=== PATIENT | male | born 1940 | race Caucasian/White ===

== ENCOUNTER 2017-05-03 16:33 | Inpatient (IN) | payer OTHER ==
--- NOTE | 2017-05-03 16:45 | CPEKG ---
Heart Rate: 112 RR Interval: 536 QRSD Interval: 96 QT Interval: 320 QTC Interval: 437 QRS [place]: 89 T Wave [place]: -21 EKG Severity - ABNORMAL ECG - EKG Impression: ATRIAL FIBRILLATION, V-RATE 94-144 EKG Impression: BORDERLINE RIGHT AXIS DEVIATION EKG Impression: ?atrial flutter/ fib Electronically Signed By: Wanda Fajardo 03-May-2017 21:32:58
[2017-05-03] MEDS ORDERED: ASPIRIN 81 MG CHEWABLE TAB PO ONE (17:02)
[2017-05-03] MEDS ORDERED: NS 500 ML IV ONE (17:02)
[2017-05-03] MEDS ORDERED: LIDOCAINE 2% VISCOUS 15 ML UDCUP PO ONE (17:02)
[2017-05-03] MEDS ORDERED: HYOSCYAMINE SULFATE 0.125 MG TAB PO ONE (17:02)
[2017-05-03] MEDS ORDERED: MAG HYDROX/AL HYDROX/SIMETH 30 ML UDCUP PO ONE (17:02)
[2017-05-03] MEDS ORDERED: DILTIAZEM 25 MG/5 ML VIAL IVP ONE ×2 (17:02→18:39)
[2017-05-03 17:08] LABS: % IMMATURE GRANULYOCYTES 0.4 % (0.0-1.1); ABSOLUTE IMMATURE GRANULOCYTES 0.07 10^3/uL (0.00-0.10); ADD DIFF? NO; ADD MORPH? NO; ADD SCAN? NO; ATYPICAL LYMPHOCYTE FLAG 0 (0-99); FRAGMENT RBC FLAG 0 (0-99); HEMATOCRIT 43.4 % (40.0-51.0); HEMOGLOBIN 14.9 g/dL (13.7-17.5); LEFT SHIFT FLG 10 (0-99); LIPEMIA HEMOLYSIS FLAG 90 (0-99); MEAN CELL HEMOGLOBIN 31.1 pg (27.9-34.1); MEAN CELL HEMOGLOBIN CONCENTR. 34.3 g/dL (32.4-36.7); MEAN CELL VOLUME 90.6 fL (81.5-99.8); MEAN PLATELET VOLUME 10.4 fL (8.7-11.7); PLATELET CLUMPS FLAG 10 (0-99); PLATELET COUNT 199 10^3/uL (150-400); RED BLOOD CELL COUNT 4.79 10^6/uL (4.40-6.38); RED CELL DISTRIBUTION WIDTH 13.6 % (11.5-15.2)
[2017-05-03 17:20] LABS: ALANINE AMINOTRANSFERASE 34 IU/L (21-72); ALBUMIN 4.1 g/dL (3.5-5.0); ALKALINE PHOSPHATASE 101 IU/L (38-126); ANION GAP 13 mEq/L (8-16); ASPARTATE AMINOTRANSFERASE 29 IU/L (17-59); BILIRUBIN,TOTAL 1.3 mg/dL (0.1-1.4); BILIRUBIN-CONJUGATED 0.3 mg/dL (0.0-0.5); CALCIUM 9.4 mg/dL (8.5-10.4); CARBON DIOXIDE 21 mEq/l (22-31); CHLORIDE 97 mEq/L (97-110); CREATININE 0.8 mg/dL (0.7-1.3); GLOMERULAR FILTRATION RATE > 60; GLUCOSE 111 mg/dL (70-100); POTASSIUM 4.1 mEq/L (3.5-5.2); SODIUM 131 mEq/L (134-144)
[2017-05-03 17:31] LABS: TROPONIN I < 0.012 ng/mL (0.000-0.034)
[2017-05-03] MEDS ORDERED: ASPIRIN 81 MG CHEWABLE TAB ONE (17:48)
[2017-05-03 18:14] LABS: COLOR YELLOW; LEUKOCYTE ESTERASE,URINE NEGATIVE (NEGATIVE); NITRITE,URINE NEGATIVE (NEGATIVE)
[2017-05-03 18:18] LABS: MUCUS TRACE /lpf (NONE-1+)
[2017-05-03] MEDS ORDERED: IOPAMIDOL (ISOVUE-300) 100 ML BTL ONE (18:29)
--- NOTE | 2017-05-03 18:37 | EDPHY ---
H & P Stated Complaint: hx afib/chest pain x 3 days Time Seen by Provider: 05/03/17 16:45 HPI/ROS: CHIEF COMPLAINT: Epigastric pain, nausea HISTORY OF PRESENT ILLNESS: 76-year-old gentleman with history of atrial fibrillation presents reporting epigastric, right and left upper quadrant discomfort as well as nausea which has been present for the last 3 days. Patient describes the discomfort as a dull pain. Better when he lays flat and worse when he walks. Does have a history of having gallstones and states that she thought it might be a gallbladder attack but it has been lasting to long. Patient reports the discomfort feels like it is up underneath his sternum. Patient denies any radiation of the pain. No diaphoresis, shortness of breath, pleuritic component. No vomiting. No palpitations. No lightheadedness. No history of coronary artery disease. No history of GERD, indigestion, reflux. He does report diminished appetite. No dysuria. REVIEW OF SYSTEMS: Aside from elements discussed in the HPI, a comprehensive 10-point review of systems was reviewed and is negative. PAST MEDICAL HISTORY: Atrial fibrillation. Hard of hearing. SOCIAL HISTORY: Here with his . Nonsmoker. VITAL SIGNS Reviewed by me. GENERAL: Well-developed, well-nourished, resting comfortably in no respiratory distress. HEENT: Atraumatic. Eyes: No icterus, no injection. Mouth: moist mucous membranes. No erythema or lesions. Neck: supple with no adenopathy. LUNGS: Clear to auscultation bilaterally, no wheezes, rhonchi or rales. CARDIAC: Regular rate and rhythm, no rubs, murmurs or gallops. ABDOMEN: Soft, mild epigastric tenderness to palpation. Mild right and left upper quadrant tenderness. No guarding or rebound. BACK: No CVA tenderness. EXTREMITIES: No trauma. No edema. Range of motion is normal throughout. NEURO: Alert and oriented, grossly nonfocal. SKIN: Warm and dry, no rash. PSYCHIATRIC: Normal mentation, no agitation. - Personal History Current Tetanus/Diphtheria Vaccine: Yes Tetanus Vaccine Date: 2008 - Medical/Surgical History Hx Asthma: No Hx Chronic Respiratory Disease: No Hx Diabetes: No Hx Cardiac Disease: Yes Hx Renal Disease: No Hx Cirrhosis: No Hx Alcoholism: No Hx HIV/AIDS: No Hx Splenectomy or Spleen Trauma: No Other PMH: afib/hearing loss/l knee replacement - Social History Smoking Status: Never smoked Constitutional: Initial Vital Signs Temperature (C) 37 C 05/03/17 16:36 Heart Rate 128 H 05/03/17 16:36 Respiratory Rate 20 05/03/17 16:36 Blood Pressure 159/100 H 05/03/17 16:36 O2 Sat (%) 97 05/03/17 16:36 O2 Delivery Mode Room Air Allergies/Adverse Reactions: No Allergies [NKDA] Allergy (Verified 05/03/17 16:35) Home Medications: Medication Instructions Recorded Aspirin [Aspirin 81mg (*)] 81 mg PO DAILY 05/19/12 Medical Decision Making - Diagnostics EKG Interpretation: 12-LEAD EKG: Please see the full report in [facility]. My interpretation: Rate of 112. Appears to be atrial flutter versus AFib. Imaging Results: Imaging Impressions Abdomen Ultrasound 05/03/17 17:03 Impression: 1. Echogenic lesions probably representing hemangiomas with stable lesion in the right lobe liver posterior segment above Morison's pouch. The second lesion was not documented previously. However, there is shadowing associated with the second lesion which is unusual for hemangioma. This could actually represent decompressed duodenum. Consider continued follow-up to confirm stability in 6- 12 months. 2. Elongated mildly enlarged gallbladder with gallstones once again identified although now impacted in the region of the gallbladder neck. The patient was nontender over the gallbladder. There is borderline gallbladder wall thickening. Consider chronic cholecystitis. 3. The pancreas is obscured by overlying bowel gas. Findings discussed with Wanda Fajardo MD at 17:55 hour, 05/03/2017. ED Course/Re-evaluation: 76-year-old with a history of atrial fibrillation - Data Points Laboratory Results: Laboratory Results 05/03/17 16:50 05/03/17 16:50 05/03/17 05/03/17 05/03/17 18:00 16:50 16:50 WBC 18.37 10^3/uL H 10^3/uL (3.80-9.50) RBC 4.79 10^6/uL 10^6/uL (4.40-6.38) Hgb 14.9 g/dL g/dL (13.7-17.5) Hct 43.4 % % (40.0-51.0) MCV 90.6 fL fL (81.5-99.8) MCH 31.1 pg pg (27.9-34.1) MCHC 34.3 g/dL g/dL (32.4-36.7) RDW 13.6 % % (11.5-15.2) Plt Count 199 10^3/uL 10^3/uL (150-400) MPV 10.4 fL fL (8.7-11.7) Neut % (Auto) 86.5 % H % (39.3-74.2) Lymph % (Auto) 5.8 % L % (15.0-45.0) [place] % (Auto) 6.9 % % (4.5-13.0) Eos % (Auto) 0.2 % L % (0.6-7.6) Baso % (Auto) 0.2 % L % (0.3-1.7) Nucleat RBC Rel Count 0.0 % % (0.0-0.2) Absolute Neuts (auto) 15.90 10^3/uL H 10^3/uL (1.70-6.50) Absolute Lymphs (auto) 1.06 10^3/uL 10^3/uL (1.00-3.00) Absolute Monos (auto) 1.27 10^3/uL H 10^3/uL (0.30-0.80) Absolute Eos (auto) 0.03 10^3/uL 10^3/uL (0.03-0.40) Absolute Basos (auto) 0.04 10^3/uL 10^3/uL (0.02-0.10) Absolute Nucleated RBC 0.00 10^3/uL 10^3/uL (0-0.01) Immature Gran % 0.4 % % (0.0-1.1) Immature Gran # 0.07 10^3/uL 10^3/uL (0.00-0.10) Sodium 131 mEq/L L mEq/L (134-144) Potassium 4.1 mEq/L mEq/L (3.5-5.2) Chloride 97 mEq/L mEq/L (97-110) Carbon Dioxide 21 mEq/l L mEq/l (22-31) Anion Gap 13 mEq/L mEq/L (8-16) BUN 10 mg/dL mg/dL (7-23) Creatinine 0.8 mg/dL mg/dL (0.7-1.3) Estimated GFR > 60 Glucose 111 mg/dL H mg/dL (70-100) Calcium 9.4 mg/dL mg/dL (8.5-10.4) Total Bilirubin 1.3 mg/dL mg/dL (0.1-1.4) Conjugated Bilirubin 0.3 mg/dL mg/dL (0.0-0.5) Unconjugated Bilirubin 1.0 mg/dL mg/dL (0.0-1.1) AST 29 IU/L IU/L (17-59) ALT 34 IU/L IU/L (21-72) Alkaline Phosphatase 101 IU/L IU/L (38-126) Troponin I < 0.012 ng/mL ng/mL (0.000-0.034) Total Protein 8.0 g/dL g/dL (6.3-8.2) Albumin 4.1 g/dL g/dL (3.5-5.0) Lipase 335 IU/L H IU/L (23-300) Urine Color YELLOW Urine Appearance CLEAR Urine pH 6.0 (5.0-7.5) Ur Specific [place] 1.023 (1.002-1.030) Urine Protein NEGATIVE (NEGATIVE) Urine Ketones 1+ H (NEGATIVE) Urine Blood 2+ H (NEGATIVE) Urine Nitrate NEGATIVE (NEGATIVE) Urine Bilirubin NEGATIVE (NEGATIVE) Urine Urobilinogen NEGATIVE EU EU (0.2-1.0) Ur Leukocyte Esterase NEGATIVE (NEGATIVE) Urine RBC 10-15 /hpf H /hpf (0-3) Urine WBC 1-3 /hpf /hpf (0-3) Ur Epithelial Cells NONE SEEN /lpf /lpf (NONE-1+) Hyaline Casts 5-15 /lpf /lpf (0-1) Urine Mucus TRACE /lpf /lpf (NONE-1+) Urine Glucose NEGATIVE (NEGATIVE) Medications Given: Discontinued Medications Al Hydroxide/Mg Hydroxide (Maalox Susp) 30 ml PO ONCE ONE Stop: 05/03/17 17:03 Last Admin: 05/03/17 17:15 Dose: 30 ml Aspirin (Aspirin) 324 mg PO EDNOW ONE Stop: 05/03/17 17:03 Last Admin: 05/03/17 17:15 Dose: 324 mg Diltiazem HCl (Cardizem 25 Mg/5 Ml Vial) 10 mg IVP EDNOW ONE Stop: 05/03/17 17:03 Last Admin: 05/03/17 17:15 Dose: 10 mg Hyoscyamine Sulfate (Levsin, Hyomax-Sl) 0.25 mg PO ONCE ONE Stop: 05/03/17 17:03 Last Admin: 05/03/17 17:15 Dose: 0.25 mg Sodium Chloride (Ns) 500 mls @ 0 mls/hr IV EDNOW ONE; Wide Open PRN Reason: Protocol Stop: 05/03/17 17:03 Last Admin: 05/03/17 17:14 Dose: 500 mls Lidocaine (Lidocaine 2% Viscous) 15 ml PO ONCE ONE Stop: 05/03/17 17:03 Last Admin: 05/03/17 17:16 Dose: 15 ml Departure - Departure Referrals: VU ABRAMS [Primary Care Provider] - As per Instructions
[2017-05-03] MEDS ORDERED: PROMETHAZINE HCL 25 MG TAB PO PRN (18:41)
[2017-05-03] MEDS ORDERED: ONDANSETRON DISINTEGRATING 4 MG TAB PO PRN (18:41)
[2017-05-03] MEDS ORDERED: ONDANSETRON 4 MG/2 ML VIAL IVP PRN (18:41)
[2017-05-03] MEDS ORDERED: PROMETHAZINE HCL 25 MG/ML INJ IVP PRN (18:41)
[2017-05-03] MEDS ORDERED: HYDROmorphONE/DILAUDID 2 MG TAB PO PRN (18:41)
[2017-05-03] MEDS ORDERED: HYDROmorphONE/DILAUDID 1 MG/ML INJ ONE (19:19)
[2017-05-03] MEDS ORDERED: METOPROLOL TARTRATE 25 MG TAB PO ONE ×3 (19:20→20:15)
[2017-05-03] MEDS: HYDROmorphONE/DILAUDID 1 MG/ML INJ IVP PRN ×2 (19:21→23:47)
--- NOTE | 2017-05-03 19:31 | PDGENHP ---
History and Physical - Chief Complaint Acute abdominal pain - History of Present Illness Primary care provider: Dr. Lopez Primary director corporate: Dr. Jimbo Shni HPI: 76-year-old male presenting with acute abdominal pain located in the bilateral upper quadrants with associated nausea, onset of symptoms 3 days ago and duration persistent thereafter. Patient reports that the pain is exacerbated by standing upright and ambulating, alleviated by lying supine. Reports that pain medications received in the emergency department also seemed to alleviate the pain. Characterizes as doll, specifically located below the sternum, without any radiation. Prior to onset of symptoms patient had otherwise been feeling well, had not recently engage in any vigorous physical activity. His oral intake of foods has been reduced, secondary to poor appetite , has only been drinking water. He also reports that over the past year, his energy level has been on a slow decline, without any abrupt changes. He was initiated on levothyroxine several months ago, but ran out of his prescription approximately 10 days ago. He also reports that from an atrial fibrillation standpoint, he is asymptomatic, and he has been permanent atrial fibrillation for the past 2 years. During his most recent office visit with Dr. Shin, in October 2016, his heart rate was in the low 80s, and he was not initiated on any rate-controlling agents. He has occasionally experienced chest pain during the past 4 months, but he has not noticed any temporal association with activity. History Information - Allergies/Home Medication List Allergies/Adverse Reactions: No Allergies [NKDA] Allergy (Verified 05/03/17 16:35) Home Medications: Aspirin [Aspirin 81mg (*)] 81 mg PO DAILY 05/19/12 [Last Taken 06/02/12] I have personally reviewed and updated: family history, medical history, social history, surgical history - Past Medical History atrial fibrillation (Permanent, on aspirin for CVA prevention, status post attempted DC cardioversion back in September of 2014, only lasted for several days) , hyperlipidemia Additional medical history: Obstructive sleep apnea not on CPAP. Moderate mitral regurgitation. Osteoarthritis in the hip and the knees. Gout. Hearing loss. Gallbladder stones - Surgical History Additional surgical history: Left knee surgery - Family History Additional family history: Brother with cardiac stents at age 55 - Social History Smoking Status: Never smoked Alcohol Use: Occasionally (No more than 1 drink per night) Drug Use: None Additional social history: Not particularly physically active, has not recently noted any chest pain or reduction in physical activity secondary to exercise Review of Systems Review of Systems: ROS: 10pt was reviewed & negative except for what was stated in HPI & below Gastrointestinal: Reports: abdominal pain, nausea Physical Exam Physical Exam: Temp Pulse Resp BP Pulse Ox 37 C 129 H 18 153/84 H 94 05/03/17 16:36 05/03/17 19:23 05/03/17 19:23 05/03/17 19:23 05/03/17 19:23 Constitutional: no apparent distress, uncomfortable, No not in pain (2/10 pain) , No chronically ill appearing Eyes: PERRL, anicteric sclera, EOMI Ears, Nose, Mouth, Throat: moist mucous membranes, hearing normal, ears appear normal, no oral mucosal ulcers Cardiovascular: no murmur, rub, or gallop, irregularly irregular, tachycardia, No edema Lab Data & Imaging Review 05/03/17 16:50 05/03/17 16:50 WBC 18.37 10^3/uL (3.80-9.50) H 05/03/17 16:50 RBC 4.79 10^6/uL (4.40-6.38) 05/03/17 16:50 Hgb 14.9 g/dL (13.7-17.5) 05/03/17 16:50 Hct 43.4 % (40.0-51.0) 05/03/17 16:50 MCV 90.6 fL (81.5-99.8) 05/03/17 16:50 MCH 31.1 pg (27.9-34.1) 05/03/17 16:50 MCHC 34.3 g/dL (32.4-36.7) 05/03/17 16:50 RDW 13.6 % (11.5-15.2) 05/03/17 16:50 Plt Count 199 10^3/uL (150-400) 05/03/17 16:50 MPV 10.4 fL (8.7-11.7) 05/03/17 16:50 Neut % (Auto) 86.5 % (39.3-74.2) H 05/03/17 16:50 Lymph % (Auto) 5.8 % (15.0-45.0) L 05/03/17 16:50 [place] % (Auto) 6.9 % (4.5-13.0) 05/03/17 16:50 Eos % (Auto) 0.2 % (0.6-7.6) L 05/03/17 16:50 Baso % (Auto) 0.2 % (0.3-1.7) L 05/03/17 16:50 Nucleat RBC Rel Count 0.0 % (0.0-0.2) 05/03/17 16:50 Absolute Neuts (auto) 15.90 10^3/uL (1.70-6.50) H 05/03/17 16:50 Absolute Lymphs (auto) 1.06 10^3/uL (1.00-3.00) 05/03/17 16:50 Absolute Monos (auto) 1.27 10^3/uL (0.30-0.80) H 05/03/17 16:50 Absolute Eos (auto) 0.03 10^3/uL (0.03-0.40) 05/03/17 16:50 Absolute Basos (auto) 0.04 10^3/uL (0.02-0.10) 05/03/17 16:50 Absolute Nucleated RBC 0.00 10^3/uL (0-0.01) 05/03/17 16:50 Immature Gran % 0.4 % (0.0-1.1) 05/03/17 16:50 Immature Gran # 0.07 10^3/uL (0.00-0.10) 05/03/17 16:50 Sodium 131 mEq/L (134-144) L 05/03/17 16:50 Potassium 4.1 mEq/L (3.5-5.2) 05/03/17 16:50 Chloride 97 mEq/L (97-110) 05/03/17 16:50 Carbon Dioxide 21 mEq/l (22-31) L 05/03/17 16:50 Anion Gap 13 mEq/L (8-16) 05/03/17 16:50 BUN 10 mg/dL (7-23) 05/03/17 16:50 Creatinine 0.8 mg/dL (0.7-1.3) 05/03/17 16:50 Estimated GFR > 60 05/03/17 16:50 Glucose 111 mg/dL (70-100) H 05/03/17 16:50 Calcium 9.4 mg/dL (8.5-10.4) 05/03/17 16:50 Total Bilirubin 1.3 mg/dL (0.1-1.4) 05/03/17 16:50 Conjugated Bilirubin 0.3 mg/dL (0.0-0.5) 05/03/17 16:50 Unconjugated Bilirubin 1.0 mg/dL (0.0-1.1) 05/03/17 16:50 AST 29 IU/L (17-59) 05/03/17 16:50 ALT 34 IU/L (21-72) 05/03/17 16:50 Alkaline Phosphatase 101 IU/L (38-126) 05/03/17 16:50 Troponin I < 0.012 ng/mL (0.000-0.034) 05/03/17 16:50 Total Protein 8.0 g/dL (6.3-8.2) 05/03/17 16:50 Albumin 4.1 g/dL (3.5-5.0) 05/03/17 16:50 Lipase 335 IU/L (23-300) H 05/03/17 16:50 Urine Color YELLOW 05/03/17 18:00 Urine Appearance CLEAR 05/03/17 18:00 Urine pH 6.0 (5.0-7.5) 05/03/17 18:00 Ur Specific [place] 1.023 (1.002-1.030) 05/03/17 18:00 Urine Protein NEGATIVE (NEGATIVE) 05/03/17 18:00 Urine Ketones 1+ (NEGATIVE) H 05/03/17 18:00 Urine Blood 2+ (NEGATIVE) H 05/03/17 18:00 Urine Nitrate NEGATIVE (NEGATIVE) 05/03/17 18:00 Urine Bilirubin NEGATIVE (NEGATIVE) 05/03/17 18:00 Urine Urobilinogen NEGATIVE EU (0.2-1.0) 05/03/17 18:00 Ur Leukocyte Esterase NEGATIVE (NEGATIVE) 05/03/17 18:00 Urine RBC 10-15 /hpf (0-3) H 05/03/17 18:00 Urine WBC 1-3 /hpf (0-3) 05/03/17 18:00 Ur Epithelial Cells NONE SEEN /lpf (NONE-1+) 05/03/17 18:00 Hyaline Casts 5-15 /lpf (0-1) 05/03/17 18:00 Urine Mucus TRACE /lpf (NONE-1+) 05/03/17 18:00 Urine Glucose NEGATIVE (NEGATIVE) 05/03/17 18:00 Visualized and Interpreted Chest x-ray results: Yes Chest X-Ray results: no infiltrate Visualized and Interpreted EKG results: Yes EKG Interpretation: Positive for: other (Atrial flutter) Assessment & Plan Assessment: 76-year-old male presents with acute abdominal pain and result in atrial flutter in the setting of permanent atrial fibrillation Plan: 1. Abdominal pain. Acute, new problem this provider, further workup indicated. Possible etiologies include cholecystitis, pancreatitis, colitis, nephrolithiasis, referred pain from angina. I suspect the most likely cause is gastrointestinal in origin, given his reproducible symptoms on physical exam, stomach bubble on chest x-ray, biliary stones impacted at the neck of the gallbladder on ultrasound -discussed with Dr. Wanda Fajardo, we both agree that intra-abdominal source is the most likely with an elevated white blood cell count, placing him at risk for overt infection, get CT of the abdomen with IV contrast -if CT does not demonstrate overt cholecystitis and does not reveal another source of his discomfort, will get HIDA scan in a.m. -he does have some microscopic hematuria on urinalysis, and if the above CT scan is unremarkable, will get ultrasounds of bilateral kidneys and ureters -treat supportively with IV and oral Dilaudid, antiemetics, bowel rest with clear liquids 2. Atrial flutter. Acute, rapid ventricular response, in the setting of permanent atrial fibrillation which is normally rate controlled. Most likely provoked in the setting of above, that being said his progressive reduction in exercise tolerance as well as intermittent chest pains do raise the concern for obstructive coronary disease -get echocardiogram -order outside records including echocardiogram from early in [address] Shin's office -get TSH level given recent discontinuation of Synthroid -monitor on telemetry -initiate rate-controlling medication with metoprolol 25 mg now, 12.5 mg twice daily thereafter -will continue aspirin 81 mg for CVA prevention, per review of outside records including 10/09/[address] Jimbo Shin, reporting patient has a low chads Vasc score of 1, recommending aspirin for CVA prevention outside of the situation of cardioversion Diet. Clear liquid, NPO after midnight in case further studies required Prophylaxis. High risk patient, SCDs, hold pharm given possibility of biliary surgery Code. Do not resuscitate per patient, his Amara is his MPOA Disposition. Anticipated discharge uncertain this time, anticipated length stay is greater than 48 hours for reasonable medical necessity including acute abdominal pain most likely secondary to a surgical biliary source which requires further workup, intensive pain management, complicated by high risk comorbid acute atrial flutter requiring further workup as well.
[2017-05-03] MEDS ORDERED: METOPROLOL TARTRATE 25 MG TAB ONE (19:41)
[2017-05-03] MEDS ORDERED: METOPROLOL TARTRATE 25 MG TAB PO SCH (21:00)
[2017-05-03] MEDS ORDERED: NS 1,000 ML IV SCH (21:30)
[2017-05-04 05:50] LABS: % IMMATURE GRANULYOCYTES 0.6 % (0.0-1.1); ABSOLUTE IMMATURE GRANULOCYTES 0.09 10^3/uL (0.00-0.10); ADD DIFF? NO; ADD MORPH? NO; ADD SCAN? NO; ATYPICAL LYMPHOCYTE FLAG 0 (0-99); FRAGMENT RBC FLAG 0 (0-99); HEMATOCRIT 40.4 % (40.0-51.0); HEMOGLOBIN 13.7 g/dL (13.7-17.5); LEFT SHIFT FLG 0 (0-99); LIPEMIA HEMOLYSIS FLAG 90 (0-99); MEAN CELL HEMOGLOBIN CONCENTR. 33.9 g/dL (32.4-36.7); MEAN CELL VOLUME 91.4 fL (81.5-99.8); MEAN PLATELET VOLUME 10.5 fL (8.7-11.7); PLATELET CLUMPS FLAG 0 (0-99); PLATELET COUNT 187 10^3/uL (150-400); RED BLOOD CELL COUNT 4.42 10^6/uL (4.40-6.38); RED CELL DISTRIBUTION WIDTH 13.8 % (11.5-15.2)
[2017-05-04 05:58] LABS: ALANINE AMINOTRANSFERASE 35 IU/L (21-72); ALBUMIN 3.2 g/dL (3.5-5.0); ALKALINE PHOSPHATASE 96 IU/L (38-126); ANION GAP 8 mEq/L (8-16); ASPARTATE AMINOTRANSFERASE 27 IU/L (17-59); BILIRUBIN,TOTAL 1.3 mg/dL (0.1-1.4); CALCIUM 8.6 mg/dL (8.5-10.4); CARBON DIOXIDE 20 mEq/l (22-31); CHLORIDE 99 mEq/L (97-110); CREATININE 0.8 mg/dL (0.7-1.3); GLOMERULAR FILTRATION RATE > 60; GLUCOSE 103 mg/dL (70-100); POTASSIUM 4.6 mEq/L (3.5-5.2); SODIUM 127 mEq/L (134-144); TOTAL PROTEIN 6.2 g/dL (6.3-8.2)
[2017-05-04 06:06] LABS: TROPONIN I < 0.012 ng/mL (0.000-0.034)
[2017-05-04] MEDS: METOPROLOL TARTRATE 25 MG TAB PO SCH ×2 (08:09→20:28)
[2017-05-04] MEDS: ACETAMINOPHEN 325 MG TAB PO PRN ×2 (09:04→20:28)
--- NOTE | 2017-05-04 10:11 | PDMN ---
Medical Necessity Medical necessity: M05 abd pain undg: req pt to be NPO for extended period of time for further eval , monitoring and tx., , IV fluids, pain meds in pt with hx of a flutter in setting of permanent afib.
--- NOTE | 2017-05-04 10:25 | ECHO ---
[email or web address] [address] [address] Main: [phone] Fax: Transthoracic Echocardiogram Name: CONSTANTIN TRACY MR#: [id number] Study Date: 05/04/2017 Study Time: 08:04 AM Date of : 1940 Age: 76 year(s) Height: 180.3 cm (71 in.) Weight: 91.63 kg (202 lb.) BSA: 2.12 m2 Gender: Male Examination: Echo Indication: Eval wall motion/EF and MR Image Quality: Contrast: Requested by: Jimbo Stack BP: 121 mmHg/84 mmHg Heart Rate: Rhythm: Atrial fibrillation Indication: Eval wall motion/EF and MR Procedure Staff Research Chemical Engineer: Luba Valentine Physician: Naren Christopher Requesting Provider: Conclusions: Global hypercontractility of the left ventricle. Mildly dilated right ventricle. Moderate to severe mitral regurgitation. The RVSP is 45mmHG. Measurements: Chambers Valvular Assessment AV/MV Valvular Assessment TV/PV Normal Normal Normal Name Value Range Name Value Range Name Value Range Ao Nishi (MM): 3.8 cm (2.2 cm-3.7 AV meanP mmHg ( - ) TR Vmax: 3.06 mm/s ( - ) cm) LVOT Vmax: 0.73 m/s (0.7 m/s-1.1 TR PGmax: 37 mmHg ( - ) IVSd (2D): 0.8 cm (0.6 cm-1.1 m/s) syst. PAP: 42 mmHg ( - ) cm) GLORIA (VTI): 2.3 cm ( - ) LVDd (2D): 4.7 cm (4.2 cm-5.9 MV meanP mmHg ( - ) cm) MVA (Vmax): 3.0 m/s ( - ) LVDs (2D): 2.2 cm (2.1 cm-4 cm) LVPWd (2D): 1.0 cm (0.6 cm-1 cm) LVOTd 2.1 cm 2.1 cm mm LVEF (MOD4): 71 % (>=55 %) Continued Measurements: Chambers Valvular Assessment AV/MV Valvular Assessment TV/PV Name Value Name Value Name Value LADs: 4.5 cm MV Annulus: 3.0 cm CVP (est.): 5 mmHg LADs Lon.5 cm MV VTI: 15.20 cm LA Area: 27.1 cm2 MR Vena Contracta: 0.3 cm MR ERO: 0.1 cm2 Patient: CONSTANTIN TRACY Study Date: 05/04/2017 Page 1 of 2 08:04 AM MR PISA radius: 5 mm MR Reg. Volume: 14 ml MR Reg. Fraction: 13 % Findings: Left Ventricle: Normal size left ventricle. Global hypercontractility of the left ventricle. EF is 71 %. Right Ventricle: Mildly dilated right ventricle. Left Atrium: The left atrium is moderately dilated. Right Atrium: The right atrium is mildly dilated. Mitral Valve: Moderate to severe mitral regurgitation. There is mild calcification of the anterior mitral leaflet.. Aortic Valve: The aortic valve is tri-leaflet. There is mild thickening of the aortic cusps. Tricuspid Valve: The tricuspid valve appears normal. Mild tricuspid regurgitation is present. The RVSP is 45mmHG. Pulmonic Valve: The pulmonic valve is normal in appearance. Trivial pulmonic valve regurgitation. Pericardium: There is pericardial fat. (No Signature Object) Patient: CONSTANTIN TRACY Study Date: 05/04/2017 Page 2 of 2 08:04 AM [id number]
--- NOTE | 2017-05-04 13:13 | HOSPPROG ---
Hospitalist Progress Note Assessment/Plan: # gallstone pancreatitis - advance to clears - patient wants to discuss with Dr Jimenez (personal friend) regarding shari # MR - seems like it has progressed since october - cards consult prior to and procedure # atrial fibrillation, now RVR, has not been rapid in the past - cont metop for now (new med) - on asa for cva ppx # hemangioma - outpatient f/u Subjective: abd pain better Objective: Vital Signs Temp Pulse Resp BP Pulse Ox 36.9 C 96 13 123/74 H 90 L 05/04/17 12:20 05/04/17 12:20 05/04/17 12:20 05/04/17 12:20 05/04/17 12:20 Laboratory Results 05/04/17 05:10 05/04/17 05:10 05/03/17 05/04/17 05/05/17 05:59 05:59 05:59 Intake Total 400 Output Total 225 Balance 175 imaging reviewed chart reviewed discussed with Olimpia Mortensen - Physical Exam Constitutional: no apparent distress, appears nourished Cardiovascular: regular rate and rhythym, no murmur, rub, or gallop Respiratory: no respiratory distress, no rales or rhonchi, clear to auscultation Gastrointestinal: normoactive bowel sounds, soft, non-tender abdomen, no palpable masses ICD10 Worksheet Patient Problems: Problems Problem Status Onset Atrial fibrillation Acute - ICD10 Problem Qualifiers (1) Atrial fibrillation
--- NOTE | 2017-05-04 14:27 | ASMTCMCOM ---
CM Note CM Note Notes: 05/04/2017 Case Management Note: Reviewed chart, spoke w/RN. No Case Management d/c needs identified d/t pt marital status, activity levels prior to admission, and lack of PT or OT evals. Case Management d/c poc: Home Independent when medically stable. Case Management available if needs change. Date Signed: 05/04/2017 02:26 PM Electronically Signed By:Afia Miles RN
--- NOTE | 2017-05-04 18:10 | GCON ---
[f rep st] CONSULTATION GENERAL SURGERY CONSULTATION REASON FOR CONSULT: Gallstone pancreatitis. HISTORY OF PRESENT ILLNESS: The patient is a 76-year-old male, who was admitted to the hospital with dull constant nonradiating epigastric abdominal pain associated with nausea. He denies fevers or vo miting. He had a similar more mild episode about 10 years ago at which time, he says he had some gal lbladder thickening on an ultrasound but did not decide to have surgery. Since being in the hospital , he has had an ultrasound which showed a mildly enlarged gallbladder with stones possibly impacted i n the gallbladder neck. A CT scan showed signs of pancreatitis. MRI of the abdomen showed cholelith iasis with pancreatitis of the tail of the pancreas and no evidence of choledocholithiasis. He also may have a benign hemangioma in the liver. Of note, the patient has a cardiac history involving atrial fibrillation controlled on aspirin. EKG appeared to show atrial fibrillation without any sign of ischemia. Chest x-ray showed only some huong ings at the left lung base possibly from atelectasis. An echocardiogram showed an ejection fraction of 71%. Please see report for full details. At this time, his pain is thought to be secondary to his cholelithiasis and pancreatitis. His white blood cell count has gone from [id number]. He has relatively normal LFTs with a lipase mildly elevated at 335. He denies any problems with bowel habits or eating. PAST MEDICAL HISTORY: Includes atrial fibrillation on aspirin recalcitrant to cardioversion, obstruc tive sleep apnea not on CPAP, osteoarthritis, gout, hearing loss. PAST SURGICAL HISTORY: Includes total knee replacement. SOCIAL HISTORY: The patient rarely drinks and does not smoke. He is with his during my visit. REVIEW OF SYSTEMS: A 10-point review of systems performed and negative aside from that in the HPI. PHYSICAL EXAMINATION: VITAL SIGNS: Temperature 36.8, pulse oxygenation 92% on room air, respiratory rate 24, heart rate 97, blood pressure 130/81. GENERAL: Reveals a pleasant, well-developed, well-n ourished 76-year-old male, in no acute distress. HEENT: Normocephalic, atraumatic. Sclerae white. CHEST: Clear to auscultation bilaterally. CARDIAC: Irregular rhythm. ABDOMEN: Soft without guar ding, mild tenderness in the epigastrium. Slight rebound tenderness appearing in the epigastric kira on with palpation of the lower quadrants. EXTREMITIES: Warm and dry. IMPRESSION: This is a 76-year-old male with atrial fibrillation, who appears to have cholelithiasis and gallstone pancreatitis. PLAN: We recommend laparoscopic cholecystectomy. We will probably do a cholangiogram due to his mitchell creatitis, even though his MRI did not show any stones in the common duct. I think we could probably do this late tomorrow, as his lipase is not horribly elevated and he is quite comfortable at this ti me. I agree with staying with a clear liquid diet for now. I will make him n.p.o. after midnight, b ut possibly give him a clear liquid breakfast if we think his surgery will be late in the day. Risks and options were discussed including, but not limited to, bleeding, infection, injury to nerve, lanie ined stones, need for ERCP, open procedure, and other problems, and he requests to proceed. Dr. Ken casey will also be seeing the patient later on today. /[id number]/MODL
--- NOTE | 2017-05-04 18:24 | GCON ---
[f rep st] CONSULTATION CARDIOLOGY CONSULTATION DATE OF CONSULTATION: 05/04/2017 OTHER PHYSICIANS: Primary monomer recovery operator, Dr. Jimbo Shin. We were asked by Dr. Haresh Magana of [facility] to evaluate the patient for his preoperative risk. HISTORY OF PRESENT ILLNESS: The patient is a 76-year-old male, with known permanent atrial fibrillat ion, who is admitted for acute abdominal pain, starting 3 days prior to arrival. He notes it through out the epigastric region, with associated poor p.o. intake. It is relieved with lying down. He den ies any previous episodes prior to onset of these symptoms. Over the past year, he has been experiencing more fatigue. He denies that it is shortness of breath. He does feel it could be related to poor sleep. He has had episodes of snoring and wakes up in the morning with fatigue. He will also fall asleep when he is sitting; for instance, while watching tel evision. He has noted 3 episodes of chest discomfort across his precordium. These are very brief. Typically, he has noted them while he is out for a walk. He denies any real vigorous exercise, but sam valdes does have 2 vanegas retrievers whom he will take for walks on a regular basis. Last episode of this discomfort occurred about 3 months ago. He reports resting, and symptoms dissipated. He was unclea r of the significance then and is not sure if this is related to musculoskeletal versus other etiolog y. He denies any PND, orthopnea, peripheral edema, presyncope, syncope, palpitations, or dyspnea. FAMILY HISTORY: Brother is alive at age 78. He has had his mitral valve replaced twice. Mother had lupus and of pneumonia. Father had kidney disease, had a pacemaker, and in his 80s. SOCIAL HISTORY: Patient reports, at most, 1 drink nightly. His is present in the room. He was a never smoker. SURGICAL HISTORY: He has had left knee surgery. PAST MEDICAL HISTORY: 1. Permanent atrial fibrillation. 2. Moderate mitral regurgitation. 3. Osteoarthritis of the hips and knees. 4. History of gout. 5. History of hearing loss, with hearing aids in place. 6. Gallstones 10 years ago that were treated conservatively. REVIEW OF SYSTEMS: As per HPI, a complete 10-point review of systems was obtained and is negative, e xcept for what is dictated. OUTPATIENT MEDICATIONS: Include aspirin and ibuprofen. ALLERGIES: No known drug allergies. PHYSICAL EXAM: VITAL SIGNS: BP of 123/74, heart rate 96, respirations 13, O2 saturation 90% on room air. He has a temp of 98.4. GENERAL: He is a very pleasant male in no apparent distress. EYES: PERRL. HEART: Irregularly irregular, with a soft systolic murmur radiating to the apex. LUNGS: Cl ear in the anterior keys. NECK: Supple with no JVD. ABDOMEN: Normoactive bowel sounds. SKIN: Warm and dry, with no clubbing, cyanosis, or edema. PSYCH: Normal mood and affect. : No Whaley _ present. LABORATORY DATA: Reviewed, with CBC showing WBC 16.04, hemoglobin 13.7, hematocrit 40.4, platelet co unt of 187. BMP with sodium 127, potassium 4.6, chloride 99, CO2 20, BUN 10, creatinine 0.8, glucose 103, TSH 3.8. A 12-lead ECG, personally interpreted, demonstrates atrial fibrillation with a heart rate of 112. Chest x-ray reviewed, which shows increased markings in the left lung base, which could be underlying atelectasis. Echocardiogram report shows global hypercontractility of the left ventri jose, mildly dilated right ventricle, eicerhvd-fm-[id number] MR, RVSP of 45. 05/04/2017 abdominal MRI show s cholelithiasis with evidence of pancreatitis at the tail of the pancreas. Abdominal CT shows mild pancreatitis around the pancreatic tail, with haziness and inflammation extending into the adjacent m esentery. IMPRESSION AND PLAN: The patient is a 76-year-old male, admitted with a gallstone pancreatitis, with onset of abdominal pain 3 days prior to arrival. 1. Preoperative risk stratification. He has no evidence of congestive heart failure or ischemic hea rt disease. His creatinine is within normal limits, and he is not a diabetic. He may proceed to mike nned surgery without further cardiac testing. 2. Permanent atrial fibrillation. His CHADS-VASc score is at least 2 with age. He should be consid ered for full anticoagulation. I will defer this discussion with primary monomer recovery operator in the outpati ent setting. 3. Ywmndkgy-wk-vaaavt mitral regurgitation. This may be in the setting of infection and hypercontra ctility of left ventricle. He may proceed to surgery. We will plan to follow with an echo in the or xt 6 months. 4. Chest pain. He has some rare episodes of chest pain. He has troponins negative x2 and a nonisch emic-appearing electrocardiogram. He may proceed to planned surgery. We will recommend that he be f ollowed on telemetry postoperatively. 5. Fatigue, likely from obstructive sleep apnea that is untreated. He is advised to consider full s leep evaluation in the outpatient setting. /[id number]/MODL
--- NOTE | 2017-05-04 20:42 | SOAPPROG ---
CALEB Progress Note Assessment/Plan: Assessment: SEEN IN CONJUNCTION WITH LISA HI/ 76 MALE WITH CHOLELITHIASIS AND GALLSTONE PANCREATITIS NEEDS LAP AYSE/ RISKS AND OPTIONS FULLY DISCUSSED HEENT NONICTERIC CHEST CLEAR COR AFIB BUT CONTROLLED RATE ABD SOFT, NONTENDER EXTREM FULL PULSES, NO EDEMA SKIN OK LFTs OK/ LIPASE 337 US LARGE STONES, NORMAL DUCTS Plan:LAP AYSE IN AM 05/04/17 20:38 Objective: Vital Signs Temp Pulse Resp BP Pulse Ox 37.4 C 111 H 16 119/76 92 05/04/17 20:00 05/04/17 20:00 05/04/17 20:00 05/04/17 20:00 05/04/17 20:00 Laboratory Results 05/04/17 05:10 05/04/17 05:10 05/03/17 05/04/17 05/05/17 05:59 05:59 05:59 Intake Total 400 880 Output Total 225 275 Balance 175 605 ICD10 Worksheet Patient Problems: Problems Problem Status Onset Atrial fibrillation Acute
[2017-05-05] MEDS: ACETAMINOPHEN 325 MG TAB PO PRN (04:38)
[2017-05-05 05:35] LABS: % IMMATURE GRANULYOCYTES 0.4 % (0.0-1.1); ABSOLUTE IMMATURE GRANULOCYTES 0.04 10^3/uL (0.00-0.10); ADD DIFF? NO; ADD MORPH? NO; ADD SCAN? NO; ATYPICAL LYMPHOCYTE FLAG 0 (0-99); FRAGMENT RBC FLAG 0 (0-99); HEMATOCRIT 39.1 % (40.0-51.0); HEMOGLOBIN 13.1 g/dL (13.7-17.5); LEFT SHIFT FLG 0 (0-99); LIPEMIA HEMOLYSIS FLAG 80 (0-99); MEAN CELL HEMOGLOBIN 30.9 pg (27.9-34.1); MEAN CELL HEMOGLOBIN CONCENTR. 33.5 g/dL (32.4-36.7); MEAN CELL VOLUME 92.2 fL (81.5-99.8); MEAN PLATELET VOLUME 11.1 fL (8.7-11.7); PLATELET CLUMPS FLAG 10 (0-99); PLATELET COUNT 176 10^3/uL (150-400); RED BLOOD CELL COUNT 4.24 10^6/uL (4.40-6.38); RED CELL DISTRIBUTION WIDTH 13.7 % (11.5-15.2)
[2017-05-05 07:10] LABS: ALANINE AMINOTRANSFERASE 48 IU/L (21-72); ALBUMIN 3.1 g/dL (3.5-5.0); ALKALINE PHOSPHATASE 119 IU/L (38-126); ANION GAP 10 mEq/L (8-16); ASPARTATE AMINOTRANSFERASE 33 IU/L (17-59); BILIRUBIN,TOTAL 0.9 mg/dL (0.1-1.4); CARBON DIOXIDE 23 mEq/l (22-31); CHLORIDE 100 mEq/L (97-110); CREATININE 0.8 mg/dL (0.7-1.3); GLOMERULAR FILTRATION RATE > 60; GLUCOSE 94 mg/dL (70-100); POTASSIUM 4.3 mEq/L (3.5-5.2); SODIUM 133 mEq/L (134-144); TOTAL PROTEIN 6.3 g/dL (6.3-8.2)
[2017-05-05] MEDS ORDERED: cefOXitin SODIUM 2 GM in D5W 100 ML IV ONE (08:12)
--- NOTE | 2017-05-05 08:12 | SOAPPROG ---
SOAP Progress Note Assessment/Plan: Assessment/Plan: 76 Y M hx afib c gallstone pancreatitis. Plan for OR later today. Consent in chart. Continue NPO. IVF ordered. Per op abx ordered sanitation officer. Risks and options discussed last night. Sleeping comfortably. Did not awaken this am. Will see again later today on floor vs. pre op. Seen by Dr. Melgar last evening as well. 05/05/17 08:10 Objective: Vital Signs Temp Pulse Resp BP Pulse Ox 36.9 C 94 19 127/79 H 96 05/05/17 04:00 05/05/17 04:00 05/05/17 04:00 05/05/17 04:00 05/05/17 04:00 Laboratory Results 05/05/17 04:23 05/05/17 04:23 05/04/17 05/05/17 05/06/17 05:59 05:59 05:59 Intake Total 400 1380 Output Total 225 475 Balance 175 905 ICD10 Worksheet Patient Problems: Problems Problem Status Onset Atrial fibrillation Acute
[2017-05-05] MEDS ORDERED: D5W 1/2 NS 1,000 ML IV SCH (08:15)
[2017-05-05] MEDS: ASPIRIN 81 MG CHEWABLE TAB PO SCH (08:51)
[2017-05-05] MEDS: METOPROLOL TARTRATE 25 MG TAB PO SCH ×2 (08:51→19:50)
[2017-05-05] MEDS ORDERED: BUPIVACAINE 0.5% 30 ML SDV ONE (10:15)
[2017-05-05] MEDS ORDERED: LR 1,000 ML IV ONE ×2 (10:41→11:30)
--- NOTE | 2017-05-05 11:01 | PDANEPAE ---
ANE History of Present Illness 76 yo male with cholecystitis/resolving pancreatitis. ANE Past Medical History - Cardiovascular History Hx Hypertension: No Hx Arrhythmias: Yes Hx Chest Pain: No Hx Coronary Artery / Peripheral Vascular Disease: No Cardiovascular History Comment: A-fib, chronic, takes ASA. - Pulmonary History Hx COPD: No Hx Recent Upper Respiratory Infection: No Hx Oxygen in Use at Home: No Hx Sleep Apnea: Yes Sleep Apnea Screening Result - Last Documented: Positive - Endocrine History Hx Diabetes: No Hypothyroid: No - Renal History Hx Renal Disorders: No - Liver History Hepatic History Comment: pancreatitis, resolving - GI History Hx Gastrointestinal Disorders: No - Chronic Pain History Chronic Pain: Yes (L hip) ANE Review of Systems Review of Systems: - Systems Constitutional: Reports: malaise Cardiac: Reports: no symptoms, irregular heart rate, palpitations (asymptomatic) Respiratory: Reports: no symptoms Gastrointestinal: Reports: abdominal pain ANE Patient History - Allergies Allergies/Adverse Reactions: No Allergies [NKDA] Allergy (Verified 05/03/17 16:35) - Home Medications Home medications: home medication list seen and reviewed Home Medications: Aspirin [Aspirin 81mg (*)] 81 mg PO DAILY 05/19/12 [Last Taken 05/03/17] Acetaminophen [Tylenol 325mg (*)] 325 mg PO DAILY PRN 05/04/17 [Last Taken Unknown] Herbals/Supplements -Info Only 1 ea PO DAILY 05/04/17 [Last Taken Unknown] Ibuprofen [Motrin (*)] 200 mg PO DAILY PRN 05/04/17 [Last Taken Unknown] Arimo-3 Fatty Acids [Fish Oil 1000 mg (*)] 2,000 mg PO DAILY 05/04/17 [Last Taken Unknown] - NPO status NPO Status: no food or drink >8 hours NPO Since - Liquids (Date): 05/04/17 NPO Since - Liquids (Time): 11:55 (water at 4:30 AM with meds) NPO Since - Solids (Date): 05/03/17 - Anes Hx Anes Hx: no prior problems - Smoking Hx Smoking Status: Never smoked Marijuana use: No - Alcohol Use Alcohol Use: Occasionally (No more than 1 drink per night) - Family Anes Hx Family Anes Hx: neg - N/A ANE Labs/Vital Signs - Labs Result Diagrams: 05/05/17 04:23 05/05/17 04:23 - Vital Signs Blood Pressure: 116/68 Heart Rate: 94 Respiratory Rate: 15 O2 Sat (%): 94 Height: 180.34 cm Weight: 91.3 kg ANE Physical Exam - Airway Neck exam: FROM Mallampati Score: Class 2 Mouth exam: normal dental/mouth exam - Pulmonary Pulmonary: clear to auscultation - Cardiovascular Cardiovascular: irregularly irregular - ASA Status ASA Status: II ANE Anesthesia Plan Anesthesia Plan: general endotracheal anesthesia
[2017-05-05] MEDS ORDERED: fentaNYL 100 MCG/2 ML INJ ONE (11:29)
[2017-05-05] MEDS ORDERED: ROCURONIUM 50 MG/5 ML VIAL ONE (11:29)
[2017-05-05] MEDS ORDERED: LIDOCAINE 2% 5 ML SDV ONE (11:29)
[2017-05-05] MEDS ORDERED: PROPOFOL 200 MG/20 ML VIAL ONE (11:29)
[2017-05-05] MEDS ORDERED: DEXAMETHASONE 4 MG/ML VIAL ONE (11:29)
[2017-05-05] MEDS ORDERED: PHENYLEPHRINE HCL 100 MCG/ML SYR ONE (11:49)
[2017-05-05] MEDS ORDERED: fentaNYL 100 MCG/2 ML INJ IVP PRN (12:46)
[2017-05-05] MEDS ORDERED: ALBUTEROL 3 ML DEYVIAL IH PRN (12:46)
[2017-05-05] MEDS ORDERED: PROMETHAZINE HCL 25 MG/ML INJ IVP PRN (12:46)
[2017-05-05] MEDS ORDERED: HYDROCODONE/APAP 5/325 TAB PO PRN ×2 (12:46→12:50)
[2017-05-05] MEDS ORDERED: NALOXONE HCL 0.4 MG/ML INJ IVP PRN (12:46)
--- NOTE | 2017-05-05 12:49 | POSTOPPROG ---
Post Op Note Date of Operation: 05/05/17 Surgeon: Dez Melgar Production Operations Inspector: Erna Knight Anesthesiologist: Doreen Burrell Anesthesia: GET(General Endotracheal) Pre-op Diagnosis: cholelithiasis, gallstone pancreatitis Post-op Diagnosis: same Procedure: lap shari c IOC Findings: a few large stones, no filling defects Inf/Abcess present in the surg proc area at time of surgery?: No EBL: 50-100 Complications: none Specimen(s): gallbladder to pathology
[2017-05-05] MEDS ORDERED: ceFAZolin 1 GM/5 ML SYR ONE (13:02)
[2017-05-05] MEDS ORDERED: HEPARIN 1000 UNIT/1 ML MDV ONE (13:02)
--- NOTE | 2017-05-05 14:37 | PDCARPN ---
Cardiology Progress Note Chief Complaint: AF/MR Assessment/Plan: Assessment: 76-y/o M with PMH permanent AF, mod MR, admitted with abdominal pain. Found to have gallstone pancreatitis. #. permanent AF: [id number] of 2/ would consider transition to full AC in outpatient setting continue ASA for now follow up with Dr. Shin #. mod-severe MR: will need close clinical follow up #. gallstone pancreatitis: per surgery services #. fatigue: consider outpatient sleep study #. chest pain: rare episodes/ will medically manage for now consider outpatient stress test 05/05/17 14:34 Subjective: Notes post-op abd pain. Reviewed/Discussed With: family Objective: Vital Signs (8 Hrs) Temp Pulse Resp BP Pulse Ox 05/05/17 13:46 98.2 F 87 17 138/78 H 92 05/05/17 13:30 13 98 05/05/17 13:25 19 99 05/05/17 13:20 7 L 99 05/05/17 13:15 98.2 F 12 136/88 H 99 05/05/17 13:10 18 99 05/05/17 13:05 19 131/96 H 100 05/05/17 13:00 18 137/80 H 100 05/05/17 12:55 97.0 F 14 137/87 H 100 05/05/17 12:53 97.0 F 05/05/17 11:01 94 15 116/68 94 05/05/17 10:35 97.6 F 94 15 116/68 94 05/05/17 09:03 96 05/05/17 08:49 97.6 F 112 H 18 119/78 97 Intake/Output (24 Hrs) 05/04/17 05/05/17 05/06/17 05:59 05:59 05:59 Intake Total 400 1380 Output Total 225 475 Balance 175 905 Intake: Oral (ml) 400 1380 Output: Urine (ml) 225 475 Urinal 225 475 Other: Weight 93.6 kg 91.3 kg 91.3 kg Number of Voids Urinal 1 1 Result Diagrams: 05/05/17 04:23 05/05/17 04:23 Cardiac Labs: Cardiac Lab Results (72 Hrs) 05/04/17 05:10 Troponin I < 0.012 Telemetry: AF with PVC singles - Physical Exam Constitutional: healthy appearing Eyes: anicteric sclera Cardiovascular: irregularly irregular Neurologic: AAOx3 Psychiatric: cooperative, interactive ICD10 Worksheet Patient Problems: Problems Problem Status Onset Atrial fibrillation Acute
[2017-05-05] MEDS ORDERED: LACTULOSE 20 GM/30 ML UDCUP PO PRN (15:15)
[2017-05-05] MEDS ORDERED: POLYETHYLENE GLYCOL 3350 17 GM PKT PO PRN (15:15)
[2017-05-05] MEDS ORDERED: BISACODYL 10 MG SUPP PR PRN (15:15)
[2017-05-05] MEDS ORDERED: MAGNESIUM HYDROXIDE 30 ML UDCUP PO PRN (15:15)
--- NOTE | 2017-05-05 17:33 | HOSPPROG ---
Hospitalist Progress Note Assessment/Plan: 76 yo M presenting with gallstone pancreatitis # gallstone pancreatitis: s/p lap shari today, doing well post operatively, pain managed. Diet advanced per surgery, will monitor # VHD: with MR that has progressed since last eval, cardiology following, no issues in OR # a fib: permanent a fib with CHADS vasc of 2, continued on metoprolol and asa for now, consider transition to full AC after dc with primary assistant manager retail # DNR # IP status Patient new to my care. Old records reviewed and summarized as above. Care plan reviewed with patients present at bedside. Subjective: no significant overnight events, patient currently feeling well in the post op setting, abdominal pain is only slight Objective: Vital Signs Temp Pulse Resp BP Pulse Ox 37.1 C 102 H 16 138/94 H 92 05/05/17 15:12 05/05/17 15:12 05/05/17 15:12 05/05/17 15:12 05/05/17 15:12 Laboratory Results 05/05/17 04:23 05/05/17 04:23 05/04/17 05/05/17 05/06/17 05:59 05:59 05:59 Intake Total 400 1380 Output Total 225 475 Balance 175 905 awake alert anicteric op clear rrr no mrg cta b soft dec bs min ttp catarina incisional no cce warm dry well perfused oriented appropriate ICD10 Worksheet Patient Problems: Problems Problem Status Onset Atrial fibrillation Acute
[2017-05-05 19:37] VITALS: RESP 20
[2017-05-05] MEDS: SENNOSIDES/DOCUSATE SODIUM TAB PO SCH (19:51)
[2017-05-06 04:52] LABS: % IMMATURE GRANULYOCYTES 0.4 % (0.0-1.1); ABSOLUTE IMMATURE GRANULOCYTES 0.05 10^3/uL (0.00-0.10); ADD DIFF? NO; ADD MORPH? NO; ADD SCAN? NO; ATYPICAL LYMPHOCYTE FLAG 0 (0-99); FRAGMENT RBC FLAG 0 (0-99); HEMATOCRIT 37.5 % (40.0-51.0); HEMOGLOBIN 12.6 g/dL (13.7-17.5); LEFT SHIFT FLG 0 (0-99); LIPEMIA HEMOLYSIS FLAG 80 (0-99); MEAN CELL HEMOGLOBIN 30.6 pg (27.9-34.1); MEAN CELL HEMOGLOBIN CONCENTR. 33.6 g/dL (32.4-36.7); MEAN PLATELET VOLUME 10.6 fL (8.7-11.7); PLATELET CLUMPS FLAG 0 (0-99); PLATELET COUNT 193 10^3/uL (150-400); RED BLOOD CELL COUNT 4.12 10^6/uL (4.40-6.38); RED CELL DISTRIBUTION WIDTH 13.4 % (11.5-15.2)
[2017-05-06 05:04] LABS: ALANINE AMINOTRANSFERASE 75 IU/L (21-72); ALBUMIN 3.1 g/dL (3.5-5.0); ALKALINE PHOSPHATASE 127 IU/L (38-126); ANION GAP 11 mEq/L (8-16); ASPARTATE AMINOTRANSFERASE 65 IU/L (17-59); BILIRUBIN,TOTAL 0.6 mg/dL (0.1-1.4); CALCIUM 8.7 mg/dL (8.5-10.4); CARBON DIOXIDE 21 mEq/l (22-31); CHLORIDE 102 mEq/L (97-110); CREATININE 0.8 mg/dL (0.7-1.3); GLOMERULAR FILTRATION RATE > 60; GLUCOSE 106 mg/dL (70-100); POTASSIUM 4.2 mEq/L (3.5-5.2); SODIUM 134 mEq/L (134-144)
[2017-05-06 07:46] VITALS: BP 114/79; PULSE 91; TEMP 97.2; O2SAT 92
--- NOTE | 2017-05-06 08:47 | SOAPPROG ---
SOAP Progress Note Assessment/Plan: Assessment/Plan: 76 Y M hx afib c gallstone pancreatitis. s/p lap shari c IOC, POD#1. Doing well. LFTs slightly up this am, but not surprising 2/2 lap shari surgery yesterday. Doubt retained stones since cholangiogram was clear. Low fat diet, advance as tolerated. Ok to shower today. Probably d/c to home later today per medicine if medically cleared. Pt thinks he does not need Rx narcotics--will use tylenol and ibuprofen. Discussed d/c info and will add to d/c plan tab. S: walking, passing gas, eating, minimal pain. O: alert, nad, oob, mobile no jaundice, mmm no wob abd soft, inc cdi 05/06/17 08:44 Objective: Vital Signs Temp Pulse Resp BP Pulse Ox 36.2 C 91 20 114/79 92 05/06/17 07:38 05/06/17 07:38 05/06/17 07:38 05/06/17 07:38 05/06/17 07:38 Laboratory Results 05/06/17 04:34 05/06/17 04:34 05/05/17 05/06/17 05/07/17 05:59 05:59 05:59 Intake Total 1380 1600 Output Total 475 425 Balance 905 1175 ICD10 Worksheet Patient Problems: Problems Problem Status Onset Atrial fibrillation Acute
[2017-05-06] MEDS: ASPIRIN 81 MG CHEWABLE TAB PO SCH (08:51)
[2017-05-06] MEDS: SENNOSIDES/DOCUSATE SODIUM TAB PO SCH (08:51)
[2017-05-06] MEDS: METOPROLOL TARTRATE 25 MG TAB PO SCH (08:51)
--- NOTE | 2017-05-06 10:00 | PDDCSUM ---
Discharge Summary Discharge Summary: Dates of service 05/03-05/06/17 consultations: general surgery, cardiology Procedures performed: abd ct, abd mri, lap shari, echo Discharge dx: # gallstone pancreatitis: s/p lap shari, no real significant post op pain, eating without issues, ambulating, will dc home # VHD: with MR that has progressed since last eval, cardiology following, no issues in OR # a fib: permanent a fib with CHADS vasc of 2, continued on metoprolol and asa for now, consider transition to full AC after dc with primary project planner # DNR dc home f/u with cardiology/general surgery/pcp > 35 min spent in dc, more than half in coordination of care
--- NOTE | 2017-05-06 11:38 | ASDISCHSUM ---
Discharge Information Plan Status:Home with No Needs Medically Cleared to Leave:05/06/2017 Discharge Date:05/06/2017 11:22 AM CM D/C Disposition:Home, Routine, Self-Care ADT D/C Disposition:Home, Routine, Self-Care Projected Discharge Date:05/06/2017 11:22 AM Transportation at D/C:Family Discharge Delay Reason: Follow-Up Date:05/06/2017 11:22 AM Discharge Slot: Final Diagnosis: Placement Information Patient Contact Information Contact Name:GUANAKITO Relationship: Address:[address] City:[place] Alternate Phone: State/Zip Code:[place] [address] Email: Financial Information Financial Class:Medicare Advantage Plans Primary Plan Desc:[facility] ADV[employer]AGE PLANS Primary Plan Number:[id number] Secondary Plan Desc: Secondary Plan Number: Assessment Information [facility] CM Progress Note CM Note CM Note Notes: 05/04/2017 Case Management Note: Reviewed chart, spoke w/RN. No Case Management d/c needs identified d/t pt marital status, activity levels prior to admission, and lack of PT or OT evals. Case Management d/c poc: Home Independent when medically stable. Case Management available if needs change. Date Signed: 05/04/2017 02:26 PM Electronically Signed By:Afia Miles RN Intervention Information
== END 2017-05-06 11:22 | disposition home or self-care (01) | DRG 418 ==
LOC: F2W 20:49
PROVIDERS: ADMIT Internal Medicine; ATTEND Internal Medicine
PROC: B246ZZ4 Ultrasonography of Right and Left Heart, Transesophageal (ICD-10-PCS; principal; 2017-05-05 16:30)
PROC: 0FT44ZZ Resection of Gallbladder, Percutaneous Endoscopic Approach (ICD-10-PCS; principal; 2017-05-05 16:30)
PROC: BF031ZZ Plain Radiography of Gallbladder and Bile Ducts using Low Osmolar Contrast (ICD-10-PCS; principal; 2017-05-05 16:30)
DX: K85.10 Biliary acute pancreatitis without necrosis or infection (principal); K80.12 Calculus of gallbladder with acute and chronic cholecystitis without obstruction; I48.2 Chronic atrial fibrillation; I48.92 Unspecified atrial flutter; D18.09 Hemangioma of other sites; G47.33 Obstructive sleep apnea (adult) (pediatric); M17.10 Unilateral primary osteoarthritis, unspecified knee; M16.10 Unilateral primary osteoarthritis, unspecified hip; M10.9 Gout, unspecified; I34.0 Nonrheumatic mitral (valve) insufficiency; H91.90 Unspecified hearing loss, unspecified ear; Z97.4 Presence of external hearing-aid; Z96.659 Presence of unspecified artificial knee joint; Z79.82 Long term (current) use of aspirin; Z66 Do not resuscitate
CPT/HCPCS: J0694; J1100; J1170; J2370; J2405; J2704; J3010; Q9967

== ENCOUNTER → 2017-10-23 | Outpatient (CLI) | payer OTHER | LOC: FCPNEURO 03:29 | PROVIDERS: ATTEND Internal Medicine Sleep Medicine | DX: G47.33 Obstructive sleep apnea (adult) (pediatric) (principal); G47.61 Periodic limb movement disorder ==